=== PATIENT | female | born 1950 | race Caucasian/White ===

== ENCOUNTER → 2023-05-03 12:16 | Outpatient (REF) | payer OTHER, MEDICARE, BC, SELFPAY ==
[2023-05-03 12:33] LABS: % Basophils 1.1 % (0-2); % Eosinophils 3.2 % (0-6); % Immature Granulocytes 1.6 % (0-0.5); % Lymphocytes 17.4 % (20.5-51.1); % Monocytes 14.4 % (1.7-9.3); % Neutrophils 62.3 % (42.2-75.2); Absolute Basophils 0.1 10^3/uL (0-0.2); Absolute Eosinophils 0.1 10^3/uL (0-0.7); Absolute Immature Granulocytes 0.1 10^3/uL (0-0.05); Absolute Lymphocytes 0.8 10^3/uL (1.2-3.4); Absolute Monocytes 0.6 10^3/uL (0.1-0.6); Absolute Neutrophils 2.7 10^3/uL (1.4-6.5); Hematocrit 25.4 % (37.0-47.0); Hemoglobin 8.4 g/dL (12.0-16.0); Mean Corp Hgb Conc. 33.1 g/dL (33.0-37.0); Mean Corpuscular Hgb 33.9 pg (27.0-31.0); Mean Corpuscular Volume 102.4 fL (81.0-99.0); Nucleated Red Blood Cells % 0 %; Red Blood Cell Count 2.48 10^6/uL (4.20-5.40); Red Cell Dist. Width 18.6 % (11.5-14.5); White Blood Cell Count 4.4 10^3/uL (4.8-10.8)
[2023-05-03 12:51] LABS: ALT (SGPT) < 10 U/L (0-35); AST (SGOT) 17 U/L (14-36); Albumin 1.7 g/dl (3.5-5.0); Alkaline Phosphatase 58 U/L (38-126); Blood Urea Nitrogen 12 mg/dl (7-17); Calcium 7.9 mg/dl (8.4-10.2); Carbon Dioxide 30 mmol/L (22-30); Chloride 103 mmol/L (98-107); Glucose 84 mg/dl (70-99); Magnesium 1.7 mg/dl (1.6-2.3); Potassium 3.6 mmol/L (3.5-5.1); Sodium 133 mmol/L (135-145); Total Bilirubin 0.5 mg/dl (0.2-1.3); Total Protein 3.1 g/dl (6.3-8.2); eGFR > 60.00
== END ==
LOC: OLABP 12:16
PROVIDERS: ATTENDING PHYSICIAN Family Medicine
DX: C82.99 Follicular lymphoma, unspecified, extranodal and solid organ sites (principal); D49.6 Neoplasm of unspecified behavior of brain; D69.6 Thrombocytopenia, unspecified; D61.810 Antineoplastic chemotherapy induced pancytopenia; E87.1 Hypo-osmolality and hyponatremia; R47.81 Slurred speech
CPT/HCPCS: 36415; 80053; 83735; 85025

== ENCOUNTER → 2023-05-07 10:23 | Outpatient (REF) | payer OTHER, MEDICARE, BC, SELFPAY ==
[2023-05-07 10:56] LABS: Hematocrit 25.5 % (37.0-47.0); Hemoglobin 8.2 g/dL (12.0-16.0); Mean Corpuscular Volume 105.4 fL (81.0-99.0); Mean Platelet Volume 11.5 fL (7.4-10.4); Platelet Count 97 10^3/uL (130-400); Red Blood Cell Count 2.42 10^6/uL (4.20-5.40); Red Cell Dist. Width 18.1 % (11.5-14.5); White Blood Cell Count 2.7 10^3/uL (4.8-10.8)
[2023-05-07 10:57] LABS: ALT (SGPT) 11 U/L (0-35); AST (SGOT) 18 U/L (14-36); Albumin 1.7 g/dl (3.5-5.0); Alkaline Phosphatase 60 U/L (38-126); Blood Urea Nitrogen 14 mg/dl (7-17); Carbon Dioxide 29 mmol/L (22-30); Chloride 104 mmol/L (98-107); Glucose 90 mg/dl (70-99); Magnesium 1.8 mg/dl (1.6-2.3); Potassium 3.6 mmol/L (3.5-5.1); Sodium 135 mmol/L (135-145); Total Bilirubin 0.4 mg/dl (0.2-1.3); Total Protein 3.2 g/dl (6.3-8.2); eGFR > 60.00
[2023-05-07 11:08] LABS: Mean Corp Hgb Conc. 32.2 g/dL (33.0-37.0); Mean Corpuscular Hgb 33.9 pg (27.0-31.0)
[2023-05-07 12:17] LABS: Absolute Neutrophils -Man Diff 0.9 10^3/uL (1.4-6.5); Band Neutrophils 3 % (0-3); Eosinophils 3 % (0-6); Lymphocytes 54 % (20-51); Metamyelocytes 3 % (-); Monocytes 3 % (2-9); Segmented Neutrophils 34 % (42-75)
[2023-05-07 12:18] LABS: Anisocytosis 1+; Normal RBC Morphology No; Ovalocytes Slight; Platelets Checked Yes; Poikilocytosis 1+; Total Cells Counted 100
== END ==
LOC: OLABP 10:23
PROVIDERS: ATTENDING PHYSICIAN Family Medicine
DX: C82.99 Follicular lymphoma, unspecified, extranodal and solid organ sites (principal); D49.6 Neoplasm of unspecified behavior of brain; D64.9 Anemia, unspecified; D69.6 Thrombocytopenia, unspecified; D61.810 Antineoplastic chemotherapy induced pancytopenia; E87.1 Hypo-osmolality and hyponatremia; G51.9 Disorder of facial nerve, unspecified; R47.81 Slurred speech
CPT/HCPCS: 36415; 80053; 83735; 85025

== ENCOUNTER → 2023-05-10 12:59 | Outpatient (REF) | payer OTHER, MEDICARE, BC, SELFPAY ==
[2023-05-10 13:33] LABS: % Basophils 1.3 % (0-2); % Eosinophils 9.1 % (0-6); % Immature Granulocytes 1.9 % (0-0.5); % Lymphocytes 63.6 % (20.5-51.1); % Monocytes 13.6 % (1.7-9.3); % Neutrophils 10.5 % (42.2-75.2); Absolute Eosinophils 0.1 10^3/uL (0-0.7); Absolute Monocytes 0.2 10^3/uL (0.1-0.6); Absolute Neutrophils 0.2 10^3/uL (1.4-6.5); Hematocrit 23.9 % (37.0-47.0); Hemoglobin 7.7 g/dL (12.0-16.0); Mean Corp Hgb Conc. 32.2 g/dL (33.0-37.0); Mean Corpuscular Hgb 33.9 pg (27.0-31.0); Mean Corpuscular Volume 105.3 fL (81.0-99.0); Mean Platelet Volume 11.2 fL (7.4-10.4); Nucleated Red Blood Cells % 0 %; Platelet Count 111 10^3/uL (130-400); Red Blood Cell Count 2.27 10^6/uL (4.20-5.40); Red Cell Dist. Width 18.4 % (11.5-14.5); White Blood Cell Count 1.5 10^3/uL (4.8-10.8)
[2023-05-10 13:47] LABS: ALT (SGPT) 10 U/L (0-35); AST (SGOT) 16 U/L (14-36); Albumin 1.9 g/dl (3.5-5.0); Alkaline Phosphatase 59 U/L (38-126); Blood Urea Nitrogen 16 mg/dl (7-17); Calcium 8.1 mg/dl (8.4-10.2); Carbon Dioxide 29 mmol/L (22-30); Chloride 104 mmol/L (98-107); Glucose 90 mg/dl (70-99); Magnesium 1.7 mg/dl (1.6-2.3); Sodium 133 mmol/L (135-145); Total Bilirubin 0.4 mg/dl (0.2-1.3); Total Protein 3.3 g/dl (6.3-8.2); eGFR > 60.00
== END ==
LOC: OLABP 12:59
PROVIDERS: ATTENDING PHYSICIAN Family Medicine
DX: C82.99 Follicular lymphoma, unspecified, extranodal and solid organ sites (principal); D49.6 Neoplasm of unspecified behavior of brain; D64.9 Anemia, unspecified; D69.6 Thrombocytopenia, unspecified; D61.810 Antineoplastic chemotherapy induced pancytopenia; E87.1 Hypo-osmolality and hyponatremia; G51.9 Disorder of facial nerve, unspecified; R47.81 Slurred speech
CPT/HCPCS: 36415; 80053; 83735; 85025

== ENCOUNTER → 2023-05-14 12:07 | Outpatient (REF) | payer OTHER, MEDICARE, BC, SELFPAY ==
[2023-05-14 13:13] LABS: Hematocrit 25.1 % (37.0-47.0); Hemoglobin 8.2 g/dL (12.0-16.0); Mean Corp Hgb Conc. 32.7 g/dL (33.0-37.0); Mean Corpuscular Hgb 33.9 pg (27.0-31.0); Mean Corpuscular Volume 103.7 fL (81.0-99.0); Nucleated Red Blood Cells % 0 %; Red Blood Cell Count 2.42 10^6/uL (4.20-5.40); Red Cell Dist. Width 17.7 % (11.5-14.5); White Blood Cell Count 1.6 10^3/uL (4.8-10.8)
[2023-05-14 13:39] LABS: ALT (SGPT) 11 U/L (0-35); AST (SGOT) 15 U/L (14-36); Alkaline Phosphatase 62 U/L (38-126); Blood Urea Nitrogen 15 mg/dl (7-17); Calcium 7.8 mg/dl (8.4-10.2); Carbon Dioxide 27 mmol/L (22-30); Chloride 106 mmol/L (98-107); Glucose 82 mg/dl (70-99); Magnesium 1.8 mg/dl (1.6-2.3); Potassium 3.9 mmol/L (3.5-5.1); Sodium 131 mmol/L (135-145); Total Bilirubin 0.4 mg/dl (0.2-1.3); Total Protein 3.6 g/dl (6.3-8.2); eGFR > 60.00
[2023-05-14 14:42] LABS: Band Neutrophils 0 % (0-3); Lymphocytes 89 % (20-51); Segmented Neutrophils 2 % (42-75)
[2023-05-14 14:43] LABS: Atypical Lymphocytes 1 %; Eosinophils 4 % (0-6); Monocytes 4 % (2-9)
[2023-05-14 14:44] LABS: Anisocytosis Slight; Hypochromasia Slight; Normal RBC Morphology No; Platelets Checked YES; Total Cells Counted 100
== END ==
LOC: OLABP 12:07
PROVIDERS: ATTENDING PHYSICIAN Family Medicine
DX: D49.6 Neoplasm of unspecified behavior of brain (principal); D64.9 Anemia, unspecified; D69.6 Thrombocytopenia, unspecified; D61.810 Antineoplastic chemotherapy induced pancytopenia; E87.1 Hypo-osmolality and hyponatremia; G51.9 Disorder of facial nerve, unspecified; R47.81 Slurred speech
CPT/HCPCS: 36415; 80053; 83735; 85025

== ENCOUNTER → 2023-05-17 10:24 | Outpatient (REF) | payer OTHER, MEDICARE, BC, SELFPAY ==
[2023-05-17 12:27] LABS: % Eosinophils 5.8 % (0-6); % Lymphocytes 73.3 % (20.5-51.1); % Monocytes 16.8 % (1.7-9.3); % Neutrophils 3.1 % (42.2-75.2); Absolute Eosinophils 0.1 10^3/uL (0-0.7); Absolute Lymphocytes 1.4 10^3/uL (1.2-3.4); Absolute Monocytes 0.3 10^3/uL (0.1-0.6); Absolute Neutrophils 0.1 10^3/uL (1.4-6.5); Hematocrit 25.6 % (37.0-47.0); Hemoglobin 8.6 g/dL (12.0-16.0); Mean Corp Hgb Conc. 33.6 g/dL (33.0-37.0); Mean Corpuscular Hgb 34.4 pg (27.0-31.0); Mean Corpuscular Volume 102.4 fL (81.0-99.0); Mean Platelet Volume 11.6 fL (7.4-10.4); Nucleated Red Blood Cells % 0 %; Platelet Count 142 10^3/uL (130-400); Red Cell Dist. Width 17.2 % (11.5-14.5); White Blood Cell Count 1.9 10^3/uL (4.8-10.8)
== END ==
LOC: OLABP 10:24
PROVIDERS: ATTENDING PHYSICIAN Family Medicine
DX: C82.99 Follicular lymphoma, unspecified, extranodal and solid organ sites (principal); D49.6 Neoplasm of unspecified behavior of brain; D64.9 Anemia, unspecified; D69.6 Thrombocytopenia, unspecified; D61.810 Antineoplastic chemotherapy induced pancytopenia; E87.1 Hypo-osmolality and hyponatremia; G51.9 Disorder of facial nerve, unspecified; R47.81 Slurred speech
CPT/HCPCS: 36415; 85025

== ENCOUNTER → 2023-05-21 14:05 | Outpatient (REF) | payer OTHER, MEDICARE, BC, SELFPAY ==
[2023-05-21 14:26] LABS: % Eosinophils 1.2 % (0-6); % Immature Granulocytes 14.6 % (0-0.5); % Lymphocytes 30.6 % (20.5-51.1); % Monocytes 11.5 % (1.7-9.3); % Neutrophils 41.1 % (42.2-75.2); Absolute Basophils 0.1 10^3/uL (0-0.2); Absolute Eosinophils 0.1 10^3/uL (0-0.7); Absolute Immature Granulocytes 1.3 10^3/uL (0-0.05); Absolute Lymphocytes 2.7 10^3/uL (1.2-3.4); Absolute Neutrophils 3.6 10^3/uL (1.4-6.5); Hematocrit 32.1 % (37.0-47.0); Hemoglobin 10.6 g/dL (12.0-16.0); Mean Corpuscular Hgb 34.6 pg (27.0-31.0); Mean Corpuscular Volume 104.9 fL (81.0-99.0); Mean Platelet Volume 11.3 fL (7.4-10.4); Nucleated Red Blood Cells % 0 %; Platelet Count 187 10^3/uL (130-400); Red Blood Cell Count 3.06 10^6/uL (4.20-5.40); Red Cell Dist. Width 17.5 % (11.5-14.5); White Blood Cell Count 8.9 10^3/uL (4.8-10.8)
[2023-05-21 14:34] LABS: ALT (SGPT) 14 U/L (0-35); AST (SGOT) 32 U/L (14-36); Albumin 2.7 g/dl (3.5-5.0); Alkaline Phosphatase 95 U/L (38-126); Blood Urea Nitrogen 14 mg/dl (7-17); Calcium 8.6 mg/dl (8.4-10.2); Carbon Dioxide 25 mmol/L (22-30); Chloride 105 mmol/L (98-107); Glucose 89 mg/dl (70-99); Magnesium 1.8 mg/dl (1.6-2.3); Potassium 4.3 mmol/L (3.5-5.1); Sodium 132 mmol/L (135-145); Total Bilirubin 0.3 mg/dl (0.2-1.3); Total Protein 4.4 g/dl (6.3-8.2); eGFR > 60.00
[2023-05-21 15:15] LABS: Absolute Neutrophils -Man Diff 3.7 10^3/uL (1.4-6.5); Band Neutrophils 10 % (0-3); Eosinophils 1 % (0-6); Lymphocytes 34 % (20-51); Monocytes 12 % (2-9); Segmented Neutrophils 32 % (42-75)
[2023-05-21 15:16] LABS: Anisocytosis 1+; Macrocytosis 1+; Metamyelocytes 4 % (-); Myelocytes 7 % (-); Normal RBC Morphology No; Platelets Checked Yes; Total Cells Counted 100
== END ==
LOC: OLABP 14:05
PROVIDERS: ATTENDING PHYSICIAN Family Medicine
DX: C82.99 Follicular lymphoma, unspecified, extranodal and solid organ sites (principal); D49.6 Neoplasm of unspecified behavior of brain; D64.9 Anemia, unspecified; D69.6 Thrombocytopenia, unspecified; D61.810 Antineoplastic chemotherapy induced pancytopenia; E87.1 Hypo-osmolality and hyponatremia; G51.9 Disorder of facial nerve, unspecified; R47.81 Slurred speech
CPT/HCPCS: 36415; 80053; 83735; 85025

== ENCOUNTER → 2023-05-24 11:35 | Outpatient (REF) | payer OTHER, MEDICARE, BC, SELFPAY ==
[2023-05-24 12:19] LABS: Hemoglobin 8.6 g/dL (12.0-16.0); Mean Corp Hgb Conc. 33.1 g/dL (33.0-37.0); Mean Corpuscular Hgb 34.4 pg (27.0-31.0); Platelet Count 167 10^3/uL (130-400); Red Cell Dist. Width 16.9 % (11.5-14.5); White Blood Cell Count 4.2 10^3/uL (4.8-10.8)
[2023-05-24 12:39] LABS: ALT (SGPT) 12 U/L (0-35); AST (SGOT) 22 U/L (14-36); Albumin 2.2 g/dl (3.5-5.0); Alkaline Phosphatase 66 U/L (38-126); Blood Urea Nitrogen 21 mg/dl (7-17); Calcium 8.3 mg/dl (8.4-10.2); Carbon Dioxide 27 mmol/L (22-30); Chloride 102 mmol/L (98-107); Glucose 88 mg/dl (70-99); Magnesium 1.7 mg/dl (1.6-2.3); Potassium 4.1 mmol/L (3.5-5.1); Sodium 132 mmol/L (135-145); Total Bilirubin < 0.1 mg/dl (0.2-1.3); Total Protein 3.7 g/dl (6.3-8.2); eGFR > 60.00
[2023-05-24 13:43] LABS: Absolute Neutrophils -Man Diff 1.3 10^3/uL (1.4-6.5); Band Neutrophils 2 % (0-3); Eosinophils 3 % (0-6); Lymphocytes 52 % (20-51); Monocytes 10 % (2-9); Segmented Neutrophils 29 % (42-75)
[2023-05-24 13:44] LABS: Platelets Checked Yes
[2023-05-24 13:52] LABS: Anisocytosis 1+
[2023-05-24 13:59] LABS: Hypochromasia 3+; Ovalocytes Slight
[2023-05-24 14:06] LABS: Total Cells Counted 100
[2023-05-24 14:17] LABS: Normal RBC Morphology No
== END ==
LOC: OLABP 11:35
PROVIDERS: ATTENDING PHYSICIAN Family Medicine
DX: C82.99 Follicular lymphoma, unspecified, extranodal and solid organ sites (principal); D49.6 Neoplasm of unspecified behavior of brain; D69.6 Thrombocytopenia, unspecified; D61.810 Antineoplastic chemotherapy induced pancytopenia; E87.1 Hypo-osmolality and hyponatremia; G51.9 Disorder of facial nerve, unspecified; R47.81 Slurred speech
CPT/HCPCS: 36415; 80053; 83735; 85025

== ENCOUNTER → 2023-05-28 11:03 | Outpatient (REF) | payer OTHER, MEDICARE, BC, SELFPAY ==
[2023-05-28 12:25] LABS: % Basophils 1.1 % (0-2); % Eosinophils 1.8 % (0-6); % Immature Granulocytes 2.1 % (0-0.5); % Lymphocytes 35.5 % (20.5-51.1); % Monocytes 7.3 % (1.7-9.3); % Neutrophils 52.2 % (42.2-75.2); Absolute Basophils 0.1 10^3/uL (0-0.2); Absolute Eosinophils 0.1 10^3/uL (0-0.7); Absolute Immature Granulocytes 0.1 10^3/uL (0-0.05); Absolute Lymphocytes 1.6 10^3/uL (1.2-3.4); Absolute Monocytes 0.3 10^3/uL (0.1-0.6); Absolute Neutrophils 2.3 10^3/uL (1.4-6.5); Mean Corp Hgb Conc. 33.3 g/dL (33.0-37.0); Mean Corpuscular Hgb 34.2 pg (27.0-31.0); Mean Corpuscular Volume 102.7 fL (81.0-99.0); Mean Platelet Volume 10.3 fL (7.4-10.4); Nucleated Red Blood Cells % 0 %; Platelet Count 220 10^3/uL (130-400); Red Blood Cell Count 2.63 10^6/uL (4.20-5.40); Red Cell Dist. Width 16.7 % (11.5-14.5); White Blood Cell Count 4.4 10^3/uL (4.8-10.8)
[2023-05-28 12:39] LABS: ALT (SGPT) 13 U/L (0-35); AST (SGOT) 24 U/L (14-36); Albumin 2.5 g/dl (3.5-5.0); Alkaline Phosphatase 71 U/L (38-126); Blood Urea Nitrogen 19 mg/dl (7-17); Calcium 8.7 mg/dl (8.4-10.2); Carbon Dioxide 28 mmol/L (22-30); Chloride 103 mmol/L (98-107); Glucose 90 mg/dl (70-99); Magnesium 1.9 mg/dl (1.6-2.3); Potassium 4.1 mmol/L (3.5-5.1); Sodium 133 mmol/L (135-145); Total Bilirubin 0.3 mg/dl (0.2-1.3); Total Protein 4.1 g/dl (6.3-8.2); eGFR > 60.00
== END ==
LOC: OLABP 11:03
PROVIDERS: ATTENDING PHYSICIAN Family Medicine
DX: C82.99 Follicular lymphoma, unspecified, extranodal and solid organ sites (principal); D49.6 Neoplasm of unspecified behavior of brain; D64.9 Anemia, unspecified; D69.6 Thrombocytopenia, unspecified; D61.810 Antineoplastic chemotherapy induced pancytopenia; E87.1 Hypo-osmolality and hyponatremia; G51.9 Disorder of facial nerve, unspecified; R47.81 Slurred speech
CPT/HCPCS: 36415; 80053; 83735; 85025

== ENCOUNTER 2023-07-12 14:28 | Emergency (ER) | payer MEDICARE, BC, SELFPAY ==
[2023-07-12 14:30] VITALS: BP 109/72
--- NOTE | 2023-07-12 14:49 | ED.GENMED ---
History of Present Illness
<Julia Vogt PA-C - Last Filed: 07/12/23 19:33>
General
Chief Complaint: Skin Problem
Source: patient and records
Exam Limitations: none
Time Seen by Provider: 07/12/23 14:46
Nursing documentation reviewed up to this point in time: agreed with
Travel History
Have you had any contact with someone who has COVID-19?: No
Do you have any symptoms of coronavirus? Fever > 100 degrees, chills, cough, shortness of breath, sore throat, loss of taste or smell, muscle aches, or headache?: No
History of Present Illness
History of Present Illness:
This is a 72 y/o female with a PMH of HTN, lymphoma, brain cancer currently undergoing chemotherapy presenting to the emergency department today with concerns of a wound on her vagina. Patient states that 2 days ago, she started to notice some
pain with sitting and she had one of her home nurses take a look and noticed a wound in the area. Patient states that it started out as a red area to, but it started to progress into a boil. Patient denies any fevers or chills. Patient denies any
nausea or vomiting, abdominal pain. Patient does have a Rg catheter in place. Patient is currently being treated for UTI with ciprofloxacin. Patient does take a probiotic. Patient denies any chest pain, shortness of breath. Patient has no
vaginal discharge that she has noticed. No vaginal bleeding.
Past History
<Julia Vogt PA-C - Last Filed: 07/12/23 19:33>
Past History
ED Past Medical History: Asthma, Cancer (Non Hodgkin's Lymphoma, Brain Tumor), HTN, Hypothyroidism and Other (UTI, )
ED Past Surgical History: Gynecological (Tubal, ) and Tonsilectomy
Social History
Tobacco: Former smoker
Alcohol: None
Drug: None
Personal:
Living: with family
Review of Systems
<Julia Vogt PA-C - Last Filed: 07/12/23 19:33>
Review of Systems
All Other Systems: ROS reviewed and negative except as documented in HPI and ROS
Phy Exam
<Julia Vgot PA-C - Last Filed: 07/12/23 19:33>
Physical Exam
Physical Exam:
General: Patient is well appearing and in no acute distress; non-toxic
Skin: There is a significant amount of soft tissue swelling on the left labia majora, with central area of fluctuance. No open wounds, no drainage. No skin breakdown.
Head: Normocephalic, atraumatic
Eyes: Sclera non-icteric. EOMs intact.
Cardiac: Regular rate
Peripheral Vascular: No lower extremity swelling
Pulm: Normal respiratory effort. No wheezes, rales, rhonchi.
Abdomen: No abdominal tenderness
Neuro: CN II-XII intact, no focal neurologic deficits.
Psychiatric: Appropriate mood and affect.
Course
<Julia Vogt PA-C - Last Filed: 07/12/23 19:33>
Orders/Labs/Results
Orders:
Orders
07/12/23 15:19
CMP [Comprehensive Metabolic Panel] Stat
Complete Blood Count/With Diff Urgent
07/12/23 15:54
US Pelvis Ltd (non-obstetric) Urgent
Reason For Exam: Left labial abscess
07/12/23 15:57
Morphine Sulfate 4 mg IV NOW STA
07/12/23 17:46
Vancomycin 1 Gram/200 ml [Vancocin] 1 gram in 200 ml IV NOW
Abnormal Lab Results
07/12/23
15:19
RBC 3.07 L 10^6/uL
(4.20-5.40)
Hgb 10.1 L g/dL
(12.0-16.0)
Hct 30.5 L %
(37.0-47.0)
MCV 99.3 H fL
(81.0-99.0)
MCH 32.9 H pg
(27.0-31.0)
RDW 14.6 H %
(11.5-14.5)
Abs Immat Gran (auto) 0.7 H 10^3/uL
(0-0.05)
Absolute Monos (auto) 0.9 H 10^3/uL
(0.1-0.6)
Immature Gran % 8.1 H %
(0-0.5)
Monocytes % 9.5 H %
(1.7-9.3)
Sodium 128 L mmol/L
(135-145)
Potassium 5.3 H mmol/L
(3.5-5.1)
Chloride 97 L mmol/L
(98-107)
BUN 27 H mg/dl
(7-17)
Creatinine 0.5 L mg/dL
(0.6-1.0)
Glucose 101 H mg/dl
(70-99)
AST 46 H U/L
(14-36)
Total Protein 4.5 L g/dl
(6.3-8.2)
Albumin 2.7 L g/dl
(3.5-5.0)
07/12/23 15:19
07/12/23 15:19
Vital Signs
Initial and Last Documented VS:
Initial Vital Signs
Temp Pulse Resp BP Pulse Ox
97.8 F 90 18 109/72 97
07/12/23 14:30 07/12/23 14:30 07/12/23 14:30 07/12/23 14:30 07/12/23 14:30
Last Documented Vital Signs
Temp Pulse Resp BP Pulse Ox
97.8 F 90 18 109/72 97
07/12/23 14:30 07/12/23 14:30 07/12/23 14:30 07/12/23 14:30 07/12/23 14:30
<Jammie Davidson MD - Last Filed: 07/12/23 15:59>
Orders/Labs/Results
Orders:
Orders
07/12/23 15:19
CMP [Comprehensive Metabolic Panel] Stat
Complete Blood Count/With Diff Urgent
07/12/23 15:54
US Pelvis Ltd (non-obstetric) Urgent
Reason For Exam: Left labial abscess
07/12/23 15:57
Morphine Sulfate 4 mg IV NOW STA
07/12/23 17:46
Vancomycin 1 Gram/200 ml [Vancocin] 1 gram in 200 ml IV NOW
Abnormal Lab Results
07/12/23
15:19
RBC 3.07 L 10^6/uL
(4.20-5.40)
Hgb 10.1 L g/dL
(12.0-16.0)
Hct 30.5 L %
(37.0-47.0)
MCV 99.3 H fL
(81.0-99.0)
MCH 32.9 H pg
(27.0-31.0)
RDW 14.6 H %
(11.5-14.5)
Abs Immat Gran (auto) 0.7 H 10^3/uL
(0-0.05)
Absolute Monos (auto) 0.9 H 10^3/uL
(0.1-0.6)
Immature Gran % 8.1 H %
(0-0.5)
Monocytes % 9.5 H %
(1.7-9.3)
Sodium 128 L mmol/L
(135-145)
Potassium 5.3 H mmol/L
(3.5-5.1)
Chloride 97 L mmol/L
(98-107)
BUN 27 H mg/dl
(7-17)
Creatinine 0.5 L mg/dL
(0.6-1.0)
Glucose 101 H mg/dl
(70-99)
AST 46 H U/L
(14-36)
Total Protein 4.5 L g/dl
(6.3-8.2)
Albumin 2.7 L g/dl
(3.5-5.0)
07/12/23 15:19
07/12/23 15:19
Vital Signs
Initial and Last Documented VS:
Initial Vital Signs
Temp Pulse Resp BP Pulse Ox
97.8 F 90 18 109/72 97
07/12/23 14:30 07/12/23 14:30 07/12/23 14:30 07/12/23 14:30 07/12/23 14:30
Last Documented Vital Signs
Temp Pulse Resp BP Pulse Ox
97.8 F 90 18 109/72 97
07/12/23 14:30 07/12/23 14:30 07/12/23 14:30 07/12/23 14:30 07/12/23 14:30
<Julia Vogt PA-C - Last Filed: 07/12/23 19:33>
MDM/Problems Addressed
Differential Diagnosis Includes:
Differentials include labial abscess, labial cellulitis, vulvovaginal carcinoma, ulcer
MDM/Problems Addressed:
Labial pain, labial lesion
Chronic conditions affecting care: Other (Hypertension, asthma, hypothyroidism, brain cancer, lymphoma)
Acute Exacerbation and/or Progression of Chronic Illness:
Hypertension, asthma, hypothyroidism, brain cancer, lymphoma
<Julia Vogt PA-C - Last Filed: 07/12/23 19:33>
*Critical Care Note
Total Time (30-74mins, 75-104mins- exclusive of procedures): Not Applicable
<Julia Vogt PA-C - Last Filed: 07/12/23 19:33>
Patient Management
Escalation/DeEscalation of care consider admission/obs:
This is a 72 y/o female with a PMH of HTN, lymphoma, brain cancer currently undergoing chemotherapy presenting to the emergency department today with concerns of a wound on her vagina. On exam, patient does have a left labial swelling and erythema
with a central area of fluctuance, no active drainage. Patient is afebrile here, nontoxic-appearing. Her lab sensory no leukocytosis, other findings chronic. Her ultrasound demonstrated findings consistent with cellulitis, no active no fluid
collection. No indication for any procedure at this. Patient is on Cipro currently for urinary tract infection. We will have patient continue this but also add clindamycin to cover for the labial abscess. Advised patient to probiotics and to eat
food with this. Patient agreed with plan, discussed conservative measures for wound management. Return precautions given. Patient will follow-up with her primary care oncologist. Patient stable for discharge
ED Attending Note
<Julia Vogt PA-C - Last Filed: 07/12/23 19:33>
-
Portions of this chart may have been created with voice recognition software.� Occasional wrong word or��sound alike� substitutions may have occurred due to the inherent limitations of voice recognition software.
<Jammie Davidson MD - Last Filed: 07/12/23 15:59>
ED Attending Note
Patient seen and examined by attending physician: Yes
I performed the substantive portion of visit, reviewed & personally made and approve the management plan that is documented in note by myself or JEANETTE.: Yes
ED Attending Note:
Patient appears nontoxic but is on immunotherapy. In addition, she is also on Eliquis which is a consideration for doing a bedside incision and drainage. Patient has a sizable left labial cellulitis with induration. I have ordered an ultrasound
so we can better get a sense of the size if there is a possible collection. Patient is breathing comfortably. Abdomen is soft and nontender
Discharge Plan
Departure
Patient Disposition: Home (Routine Discharge)
Date of Disposition: 07/12/23
Time of Disposition: 17:49
Patient with high blood pressure during this ER visit?: No
Condition: Good
Discharge Problem:
Cellulitis of labia
Instructions: Wound Care (DC), Cellulitis (Skin Infection), Adult (DC), BLOOD PRESSURE
Prescriptions:
New
clindamycin HCl 300 mg capsule
300 mg PO QID 7 Days Qty: 28 0RF
No Action
fluticasone propion-salmeterol 250-50 mcg/dose Blister With Device
1 inh INHALATION R BID
Patient Comments:
07/12/2023, pt. has not taken this med. in roughly one week because she has had thrush.
acyclovir 800 mg Tablet
800 mg PO BID
levothyroxine 75 mcg Tablet
75 mcg PO DAILY
albuterol sulfate 90 mcg/actuation Hfa Aerosol Inhaler
2 puff INHALATION R QIDPRN PRN (Reason: sob/wheezing)
cyanocobalamin (vitamin B-12) 1,000 mcg Tablet
1,000 mcg PO DAILY
lansoprazole 30 mg Capsule,Delayed Release(Dr/Ec)
30 mg PO BID
Cresemba 186 mg Capsule
372 mg PO DAILY Qty: 0 0RF
loperamide 2 mg Capsule
2 mg PO Q8HPRN PRN (Reason: diarrhea)
sulfamethoxazole-trimethoprim 800-160 mg tablet
1 tab PO .SEE BELOW
Patient Comments:
07/12/2023, pt. stopped taking while on Cipro.; normally takes MoWeFr@0800.
acetaminophen [Tylenol Extra Strength] 500 mg Tablet
1,000 mg PO BIDPRN PRN (Reason: mild pain)
mirtazapine 15 mg Tablet
15 mg PO HS
cholecalciferol (vitamin D3) 10 mcg (400 unit) Tablet
10 mcg PO DAILY
Delsym 30 mg/5 mL Liquid
30 mg PO HSPRN PRN (Reason: cough)
Visbiome 112.5 billion cell Capsule
1 cap PO DAILY
Patient Comments:
07/12/2023, Nature Jim Probiotic 10.
Yk-Fgry-Hxefinu 133 mg Tablet
133 mg PO DAILY
Gi-Angh-Vnmmjqu 133 mg Tablet
266 mg PO QPM
Eliquis 2.5 mg Tablet
2.5 mg PO BID
Imbruvica 140 mg capsule
560 mg PO DAILY
ciprofloxacin HCl 500 mg tablet
500 mg PO BID
Patient Comments:
07/12/2023, pt. filled this med. on 07/10/2023 and is instructed to take one tablet BID for 5 days.
Referrals:
Carlo Ham MD [Family Provider] -
Activity Restrictions/Additional Instructions:
Please continue your ciprofloxacin as directed by your primary care provider. We have also sent Clindamycin to your pharmacy for your labial cellulitis. Please take one tablet 4 times daily for 7 days. Please take this with food, please continue
your probiotics.
Please return to the emergency department should you experience fevers or chills, chest pain, shortness of breath, abdominal pain, blood in urine, fainting spells, or any other signs or symptoms concerning to you.
Please have your lab work repeated in a week with your primary care provider.
Please follow up with your oncologist.
Interventions
Interventions:
*Risk Screen - Suicide Last Done: 07/12/23 14:30
*General Assessment Last Done: 07/12/23 14:30
*Neglect/Abuse Screening Last Done: 07/12/23 15:14
ED- Fall Risk Assessment Last Done: 07/12/23 15:14
*ED COVID-19 Vaccine History Last Done: 07/12/23 14:30
*Nursing Disposition Last Done: 07/12/23 19:27
ED-Skin Assessment Last Done: 07/12/23 15:14
Discharge Date and Time
Print Language: WELSH
[2023-07-12 15:14] VITALS: BMI 28.5
[2023-07-12 15:39] LABS: % Basophils 0.7 % (0-2); % Eosinophils 0.2 % (0-6); % Immature Granulocytes 8.1 % (0-0.5); % Lymphocytes 21.7 % (20.5-51.1); % Monocytes 9.5 % (1.7-9.3); % Neutrophils 59.8 % (42.2-75.2); Absolute Basophils 0.1 10^3/uL (0-0.2); Absolute Immature Granulocytes 0.7 10^3/uL (0-0.05); Absolute Monocytes 0.9 10^3/uL (0.1-0.6); Absolute Neutrophils 5.5 10^3/uL (1.4-6.5); Hematocrit 30.5 % (37.0-47.0); Hemoglobin 10.1 g/dL (12.0-16.0); Mean Corp Hgb Conc. 33.1 g/dL (33.0-37.0); Mean Corpuscular Hgb 32.9 pg (27.0-31.0); Mean Corpuscular Volume 99.3 fL (81.0-99.0); Mean Platelet Volume 10.4 fL (7.4-10.4); Nucleated Red Blood Cells % 0 %; Platelet Count 291 10^3/uL (130-400); Red Blood Cell Count 3.07 10^6/uL (4.20-5.40); Red Cell Dist. Width 14.6 % (11.5-14.5); White Blood Cell Count 9.2 10^3/uL (4.8-10.8)
[2023-07-12 16:06] LABS: ALT (SGPT) 18 U/L (0-35); AST (SGOT) 46 U/L (14-36); Albumin 2.7 g/dl (3.5-5.0); Alkaline Phosphatase 81 U/L (38-126); Blood Urea Nitrogen 27 mg/dl (7-17); Calcium 8.8 mg/dl (8.4-10.2); Carbon Dioxide 29 mmol/L (22-30); Chloride 97 mmol/L (98-107); Estimated Creatinine Clearance 79 ml/min; Glucose 101 mg/dl (70-99); Potassium 5.3 mmol/L (3.5-5.1); Sodium 128 mmol/L (135-145); Total Bilirubin 0.3 mg/dl (0.2-1.3); Total Protein 4.5 g/dl (6.3-8.2); eGFR > 60.00
[2023-07-12] MEDS: MORPHINE SULFATE 4 MG IV (16:29)
[2023-07-12] MEDS: VANCOCIN 200 IV (17:56)
[2023-07-12 19:27] VITALS: BP 111/79
== END 2023-07-12 19:28 | disposition home or self-care (01) ==
LOC: EMR 14:28
PROVIDERS: Physician Assistant; EMERGENCY PHYSICIAN Emergency Medicine; FAMILY PHYSICIAN Internal Medicine Geriatric Medicine
DX: N76.2 Acute vulvitis (principal); I10 Essential (primary) hypertension; J45.909 Unspecified asthma, uncomplicated; E03.9 Hypothyroidism, unspecified
CPT/HCPCS: 99284; 96365; 96375; 76857; 80053; 85025

== ENCOUNTER 2023-07-13 04:54 | Emergency (ER) | payer MEDICARE, BC, SELFPAY ==
[2023-07-13 05:04] VITALS: BP 112/66
[2023-07-13 05:06] VITALS: BMI 27.3
--- NOTE | 2023-07-13 05:10 | ED.GENMED ---
History of Present Illness
General
Chief Complaint: Fall
Source: patient
Exam Limitations: none
Time Seen by Provider: 07/13/23 05:07
Travel History
Have you had any contact with someone who has COVID-19?: No
Do you have any symptoms of coronavirus? Fever > 100 degrees, chills, cough, shortness of breath, sore throat, loss of taste or smell, muscle aches, or headache?: No
History of Present Illness
History of Present Illness:
See MDM
Past History
Past History
ED Past Medical History: Asthma, Cancer (Non Hodgkin's Lymphoma, Brain Tumor), HTN, Hypothyroidism and Other (UTI, )
ED Past Surgical History: Gynecological (Tubal, ) and Tonsilectomy
Social History
Tobacco: Former smoker
Alcohol: None
Drug: None
Personal:
Living: with family
Phy Exam
Physical Exam
Physical Exam:
See MDM
Course
Orders/Labs/Results
Orders:
Orders
07/13/23 05:09
EKG [Electrocardiogram (*1)] Urgent
Reason for Study: Other
Other Reason for Exam: weakness and fall
CT Head W/o Iv Contrast Urgent
Comment:
Reason For Exam: fall, left forehead injury
EKG- Treatment ONCE
Vital Signs
Initial and Last Documented VS:
Initial Vital Signs
Temp Pulse Resp Pulse Ox
97.5 F 110 13 96
07/13/23 04:57 07/13/23 04:57 07/13/23 04:57 07/13/23 04:57
Last Documented Vital Signs
Temp Pulse Resp Pulse Ox
97.5 F 110 13 96
07/13/23 04:57 07/13/23 04:57 07/13/23 04:57 07/13/23 04:57
MDM/Problems Addressed
Differential Diagnosis Includes:
HPI and MDM Narrative:
72-year-old female presenting with a trip and fall. Patient got out of bed and she states that she forgot that she had a Rg catheter. She states she tripped and she fell forward hitting her head. She is on Eliquis. She was just seen in the
emergency department yesterday and diagnosed with UTI.
Patient complains of mild headache. She denies neck pain. She denies palpitations or shortness of breath. She denies loss of consciousness or hip pain. Given the trauma on Eliquis, will obtain CT
Physical exam
General: Well appearing and non-toxic
HEENT: protecting airway. Pupils equal reactive. EOMI. Hematoma to left forehead
Neck: supple
CV: No evidence of cyanosis
Resp: No accessory muscle use
Abd: Non-distended
Extremities: No deformities
Neuro: alert
Psych: Normal affect
Skin: Intact
Problems Addressed including Acute and Chronic Conditions affecting care:
1. Head injury
Acuity: acute
Prognosis: stable
Details: Given Eliquis, will obtain CT head
Updates
CT head negative. This time, at bedside. I question whether patient and feel comfortable going home. They both feel comfortable going home
Differential Diagnosis (but not limited to): Intracranial hemorrhage, concussion, contusion
Testing considered: CT maxillofacial but no facial tenderness noted
Drug therapy (if applicable): OTC meds, please see d/c instruction regarding Rx drugs
Amount and/or Complexity of Data Reviewed
Clinical info obtained from: Patient
External data reviewed: N/A
Labs I independently reviewed (but not limited to): N/A
Radiology: The CT scan was personally and independently reviewed. In addition, official CT report reviewed.
Pulse Ox: not hypoxic
EKG independently reviewed: Sinus tachycardia, normal axis, no STEMI
Tire Maintenance Technician: N/A
Critical Care: N/A
Risk of Complication:
Social Determinants of health: Good social support
Discussed with other providers: N/A
Escalation of Care includes Admit/Obs: After being observed in the Emergency Department, pt stable for discharge.
Occasional wrong word or 'sound a like' substitutions may have occurred due to the inherent limitations of voice recognition software. Read the chart carefully and recognize, using context, where substitutions have occurred.
*Critical Care Note
Total Time (30-74mins, 75-104mins- exclusive of procedures): Not Applicable
ED Attending Note
-
Portions of this chart may have been created with voice recognition software.� Occasional wrong word or��sound alike� substitutions may have occurred due to the inherent limitations of voice recognition software.
Discharge Plan
Departure
Patient Disposition: Home (Routine Discharge)
Date of Disposition: 07/13/23
Time of Disposition: 05:52
Patient with high blood pressure during this ER visit?: No
Discharge Problem:
Head injury, acute
Instructions: Head Injury in Adults (DC)
Prescriptions:
No Action
fluticasone propion-salmeterol 250-50 mcg/dose Blister With Device
1 inh INHALATION R BID
Patient Comments:
07/12/2023, pt. has not taken this med. in roughly one week because she has had thrush.
acyclovir 800 mg Tablet
800 mg PO BID
levothyroxine 75 mcg Tablet
75 mcg PO DAILY
albuterol sulfate 90 mcg/actuation Hfa Aerosol Inhaler
2 puff INHALATION R QIDPRN PRN (Reason: sob/wheezing)
cyanocobalamin (vitamin B-12) 1,000 mcg Tablet
1,000 mcg PO DAILY
lansoprazole 30 mg Capsule,Delayed Release(Dr/Ec)
30 mg PO BID
Cresemba 186 mg Capsule
372 mg PO DAILY Qty: 0 0RF
loperamide 2 mg Capsule
2 mg PO Q8HPRN PRN (Reason: diarrhea)
sulfamethoxazole-trimethoprim 800-160 mg tablet
1 tab PO .SEE BELOW
Patient Comments:
07/12/2023, pt. stopped taking while on Cipro.; normally takes MoWeFr@0800.
acetaminophen [Tylenol Extra Strength] 500 mg Tablet
1,000 mg PO BIDPRN PRN (Reason: mild pain)
mirtazapine 15 mg Tablet
15 mg PO HS
cholecalciferol (vitamin D3) 10 mcg (400 unit) Tablet
10 mcg PO DAILY
Delsym 30 mg/5 mL Liquid
30 mg PO HSPRN PRN (Reason: cough)
Visbiome 112.5 billion cell Capsule
1 cap PO DAILY
Patient Comments:
07/12/2023, Nature Bounty Probiotic 10.
Rz-Ydhm-Lhypylj 133 mg Tablet
133 mg PO DAILY
Vi-Hled-Iwofwht 133 mg Tablet
266 mg PO QPM
Eliquis 2.5 mg Tablet
2.5 mg PO BID
Imbruvica 140 mg capsule
560 mg PO DAILY
ciprofloxacin HCl 500 mg tablet
500 mg PO BID
Patient Comments:
07/12/2023, pt. filled this med. on 07/10/2023 and is instructed to take one tablet BID for 5 days.
clindamycin HCl 300 mg capsule
300 mg PO QID 7 Days Qty: 28 0RF
Referrals:
Carlo Ham MD [Family Provider] -
Activity Restrictions/Additional Instructions:
Please return for any worsening symptoms.
You may return at any time if you have further concerns.
Please follow up with your doctor at the first available appointment, preferably this week.
Thank you for choosing [facility].
Interventions
Interventions:
*Risk Screen - Suicide Last Done: 07/13/23 04:57
*General Assessment Last Done: 07/13/23 04:57
*Neglect/Abuse Screening Last Done: 07/13/23 04:57
*ED COVID-19 Vaccine History Last Done: 07/13/23 05:06
ED-Musculoskeletal Assessment Last Done: 07/13/23 05:08
ED- Neurological Assessment Last Done: 07/13/23 05:06
ED-Skin Assessment Last Done: 07/13/23 05:06
Discharge Date and Time
Print Language: GREEK
== END 2023-07-13 06:33 | disposition home or self-care (01) ==
LOC: EMR 04:54
PROVIDERS: EMERGENCY PHYSICIAN Student in an Organized Health Care Education/Training Program; FAMILY PHYSICIAN Internal Medicine Geriatric Medicine
DX: S09.90XA Unspecified injury of head, initial encounter (principal); S00.83XA Contusion of other part of head, initial encounter; R51.9 Headache, unspecified; R53.1 Weakness; W01.0XXA Fall on same level from slipping, tripping and stumbling without subsequent striking against object, initial encounter; Y93.01 Activity, walking, marching and hiking; N39.0 Urinary tract infection, site not specified; I10 Essential (primary) hypertension; J45.909 Unspecified asthma, uncomplicated; E03.9 Hypothyroidism, unspecified; Z79.01 Long term (current) use of anticoagulants; Z85.72 Personal history of non-Hodgkin lymphomas; Z87.440 Personal history of urinary (tract) infections; Z87.891 Personal history of nicotine dependence
CPT/HCPCS: 99284; 70450; 93005